=== PATIENT | female | born 1975 | race African-American/Black ===

== ENCOUNTER 2018-08-30 10:42 | Emergency (ER) | payer OTHER ==
[~2018-08-30] VITALS: Ht 149.9 cm; Wt 88.0 kg
[2018-08-30] MEDS ORDERED: PSEUDOEPHEDRINE60 MG PO (10:56)
[2018-08-30] MEDS ORDERED: GABAPENTIN300 MG ORAL (10:57)
[2018-08-30] MEDS ORDERED: IBUPROFEN600 MG ORAL (11:10)
[2018-08-30] MEDS ORDERED: ROBAXIN-750750 MG PO (11:10)
[2018-08-30] MEDS ORDERED: Methocarbamol 750mg tab ORAL ONE (11:15)
[2018-08-30 11:19] VITALS: BP 122/76
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
== END 2018-08-30 11:19 | disposition home or self-care (01) ==
LOC: EMR 11:17
DX: S10.93XA Contusion of unspecified part of neck, initial encounter (principal); S20.219A Contusion of unspecified front wall of thorax, initial encounter; S60.212A Contusion of left wrist, initial encounter; V43.52XA Car driver injured in collision with other type car in traffic accident, initial encounter; Y92.410 Unspecified street and highway as the place of occurrence of the external cause
CPT/HCPCS: 99283